=== PATIENT | male | born 1995 | race Caucasian/White ===

== ENCOUNTER 2023-06-02 14:09 | Emergency (ER) | payer SELFPAY ==
[~2023-06-02] VITALS: Ht 167.6 cm; Wt 72.3 kg
[2023-06-02 14:13] VITALS: TEMP 97.3
[2023-06-02 15:14] VITALS: BP 125/69; PULSE 63
== END 2023-06-02 15:14 | disposition home or self-care (01) ==
LOC: COL.ER 14:09
DX: S93.402A Sprain of unspecified ligament of left ankle, initial encounter (principal); Z28.310 Unvaccinated for COVID-19; X50.1XXA Overexertion from prolonged static or awkward postures, initial encounter; Y93.02 Activity, running